=== PATIENT | female | born 1970 | race American Indian/Alaskan Native ===

== ENCOUNTER 2018-09-11 14:18 | Emergency (ER) | payer BC, OTHER ==
[2018-09-11 14:29] VITALS: BP 127/92
--- NOTE | 2018-09-11 14:31 | Emergency Department Report ---
Blank Doc - Documentation Documentation: C/O N/V/D time 1 week. Sharp abd pain. No PMH. This initial assessment diagnostic orders/clinical plan/treatment (s) is/Are subject change based on patient's health status, clinical progression and re- assessment by fellow clinical providers in the ED. Further treatment and work-up at subsequent clinical providers discretion. Patient/guardians urged not to elope from their condition may be serious if not clinically assessed and managed. Initial order include:
[2018-09-11] MEDS ORDERED: BENTYL IM ONE (15:06)
[2018-09-11] MEDS ORDERED: ZOFRAN IM ONE (15:06)
--- NOTE | 2018-09-11 15:11 | Emergency Department Report ---
Vomiting/Diarrhea - HPI Chief Complaint: Abdominal Pain Stated Complaint: STOMACH PAIN/SORE THROAT Time Seen by Provider: 09/11/18 14:24 Duration: 4 Days Severity: moderate Nausea/Vomiting Severity: Moderate Diarrhea Severity: Mild Pain Location: Generalized (crampy) Pain Severity: None Symptoms: Yes Able to Tolerate Fluids (able to keep down tylenol), Yes Family w/ Similar Symptoms (patient recently had a definite family and there were several family members [place] town here. Patient states her brother had to be seen 2 days ago at another emergency department secondary to nausea vomiting diarrhea as well.), No Watery Diarrhea, No Bloody diarrhea, No Fever, No Recent Unusual Foods, No Recent Untreated Water, No Recent use of Antibiotics, No Rash, No Hematuria, No Recent URI Symptoms ED Review of Systems ROS: Stated complaint: STOMACH PAIN/SORE THROAT Other details as noted in HPI Comment: All other systems reviewed and negative ED Past Medical Hx - Past Medical History Additional medical history: scoliosis - Surgical History Additional Surgical History: d&c, thyroid tumor - Social History Smoking Status: Never Smoker Substance Use Type: Alcohol - Medications Home Medications: Home Medications Medication Instructions Recorded Confirmed Last Taken Type Ibuprofen [Motrin] 800 mg PO Q8H PRN #20 tablet 11/08/13 Unknown Rx Dicyclomine [Bentyl] 10 mg PO QID PRN #20 capsule 06/14/16 Unknown Rx Ondansetron [Zofran Odt] 4 mg PO QID PRN #20 tab.rapdis 06/14/16 Unknown Rx Polyethylene Glycol 3350 [Miralax 17 gm PO QDAY #30 packet 06/14/16 Unknown Rx 3350] Dicyclomine [Bentyl] 10 mg PO QID #15 capsule 09/11/18 Unknown Rx Diphenoxylate/Atropine [Lomotil] 1 tab PO Q4H PRN #10 tablet 09/11/18 Unknown Rx Ondansetron [Zofran Odt] 4 mg PO Q8HR PRN #10 tab.rapdis 09/11/18 Unknown Rx traMADol [Ultram] 50 mg PO Q6HR PRN #10 tablet 09/11/18 Unknown Rx Vomiting Diarrhea Exam - Exam General: Vital signs noted. No distress. Alert and acting appropriately. HEENT: Yes Moist Mucous Membranes, No Pharyngeal Erythema, No Pharyngeal Exudates, No Rhinorrhea, No Conjuctival Injection, No Frontal Tenderness, No Maxillary Tenderness Neck: No Adenopathy, No Rigidity Lungs: Yes Clear Lung Sounds, Yes Good Air Exchange, No Wheezes, No Stridor, No Cough, No Nasal Flaring, No Retractions, No Use of Accessory Muscles Heart exam: Regular: Yes, Murmur: No, Tachycardia: No Abdomen: Tenderness: No, Peritoneal Signs: No, Distention: No, Hyperactive Bowel sounds: No Skin exam: Rash: No, Edema: No, Normal turgor: Yes Neurologic: Alert and oriented, no deficits. Musculoskeletal: Unremarkable. ED Course Vital Signs 09/11/18 14:26 Temperature 98.7 F Pulse Rate 81 Respiratory 16 Rate Blood Pressure 127/92 [Left] O2 Sat by Pulse 98 Oximetry ED Medical Decision Making - Medical Decision Making Patient's vital signs are within normal limits her mouth is moist she does not appear to be dehydrated at this time however her symptoms will be treated. Critical care attestation.: If time is entered above; I have spent that time in minutes in the direct care of this critically ill patient, excluding procedure time. ED Disposition Clinical Impression: Viral gastroenteritis Disposition: DC-01 TO HOME OR SELFCARE Is pt being admited?: No Does the pt Need Aspirin: No Condition: Stable Instructions: Gastroenteritis (ED) Time of Disposition: 15:12
== END 2018-09-11 15:39 | disposition home or self-care (01) ==
LOC: ED 14:18
DX: A08.4 Viral intestinal infection, unspecified (principal)
CPT/HCPCS: 96372; 99282; J0500; J2405

== ENCOUNTER 2018-10-22 11:50 | Emergency (ER) | payer BC ==
[2018-10-22 12:21] VITALS: BP 149/99
--- NOTE | 2018-10-22 12:21 | Emergency Department Report ---
Blank Doc - Documentation Documentation: This is a 48-year-old female that presents with dry cough with left eye pain and irritation. This initial assessment/diagnostic orders/clinical plan/treatment(s) is/are subject to change based on patient's health status, clinical progression and re- assessment by fellow clinical providers in the ED. Further treatment and workup at subsequent clinical providers discretion. Patient/guardians urged not to elope from the ED as their condition may be serious if not clinically assessed and managed. Initial orders include: 1- Patient sent to [facility] for further evaluation and treatment 2- moses lamp 3- CXR
[2018-10-22] MEDS ORDERED: DECADRON IM ONE (13:01)
--- NOTE | 2018-10-22 13:01 | Emergency Department Report ---
Minor Respiratory - HPI Chief Complaint: Upper Respiratory Infection Stated Complaint: SAURABH/DIZZY/WEAKNESS/EYES RED Time Seen by Provider: 10/22/18 12:19 Duration: 5 Days Pain Location: Facial, Throat, Nose, Ear, Chest Severity: mild Minor Respiratory: Yes Rhinorrhea, Yes Able to Tolerate Fluids, No Sore Throat, No Ear Pain, No Cough, No Sick Contacts, No Hemoptysis, No Chest Pain, No Shortness of Breath, No Fever Other History: Patient is a pleasant 48-year-old who comes to the ER with allergic type signs and symptoms. She's had a runny nose, runny eyes, postnasal drip. Today she has developed conjunctiva as above her left side. She states that previously she had it in her right. Vital signs are stable she is afebrile. She has no significant past medical history. She is ambulatory, and nontoxic in the ER. ED Review of Systems ROS: Stated complaint: SAURABH/DIZZY/WEAKNESS/EYES RED Other details as noted in HPI Comment: All other systems reviewed and negative ED Past Medical Hx - Past Medical History Previous Medical History?: No Additional medical history: scoliosis - Surgical History Past Surgical History?: No Additional Surgical History: d&c, thyroid tumor - Family History Family history: no significant - Social History Smoking Status: Never Smoker Substance Use Type: None - Medications Home Medications: Home Medications Medication Instructions Recorded Confirmed Last Taken Type Polymyxin B Sulf/Trimethoprim 10 ml OP Q6H #1 each 10/22/18 Unknown Rx [Polytrim Eye Drops] Minor Respiratory Exam - Exam General: Vital signs noted. No distress. Alert and acting appropriately. HEENT: Yes Moist Mucous Membranes, Yes Rhinorrhea, Yes Conjuctival Injection, No Pharyngeal Erythema, No Pharyngeal Exudates, No Frontal Tenderness, No Maxillary Tenderness Ear: Neither TM Bulge, Neither TM Erythema, Neither EAC Pain, Neither EAC Discharge Neck: Yes Supple, No Adenopathy Lungs: Yes Good Air Exchange, No Wheezes, No Ronchi, No Stridor, No Cough, No Labored Respirations, No Retractions, No Use of Accessory Muscles, No Other Abnormal Lung Sounds Heart: Yes Regular, No Murmur Abdomen: Yes Normal Bowel Sounds, No Tenderness, No Peritoneal Signs Skin: No Rash, No Edema Neurologic: Alert and oriented, no deficits. Musculoskeletal: Unremarkable. ED Course Vital Signs 10/22/18 12:19 Temperature 98.9 F Pulse Rate 70 Respiratory 18 Rate Blood Pressure 149/99 O2 Sat by Pulse 99 Oximetry ED Medical Decision Making - Medical Decision Making Vital Signs 10/22/18 12:19 Temperature 98.9 F Pulse Rate 70 Respiratory 18 Rate Blood Pressure 149/99 O2 Sat by Pulse 99 Oximetry SIMPLE URTI NO FEVER NO TRAUMA TO EYE AMBULATORY NON TOXIC LUNGS CLEAR DECADRON IM FOR INFLAMMATION DC HOME WITH DC PLAN OF CARE Critical care attestation.: If time is entered above; I have spent that time in minutes in the direct care of this critically ill patient, excluding procedure time. ED Disposition Clinical Impression: Allergic rhinitis, Conjunctivitis Disposition: DC-01 TO HOME OR SELFCARE Is pt being admited?: No Does the pt Need Aspirin: No Condition: Stable Instructions: Conjunctivitis (ED), Allergic Rhinitis (ED) Additional Instructions: STOP DELSYM USE OTC FLONASE AND ZYRTEC DROPS ORDERED TODAY FOLLOW UP PCP Prescriptions: Polymyxin B Sulf/Trimethoprim [Polytrim Eye Drops] 10 ml OP Q6H #1 each Referrals: [facility] [Outside] - 3-5 Days Forms: Work/School Release Form(ED) Time of Disposition: 13:03
--- NOTE | 2018-10-22 14:06 | XRay Report ---
ROUTINE CHEST, TWO VIEWS: HISTORY: Cough. The trachea, heart, mediastinal contour, lung zhou are unremarkable. Moderate scoliosis is noted. The bony structures are intact. IMPRESSION: Scoliosis, otherwise, unremarkable chest films.
== END 2018-10-22 13:23 | disposition home or self-care (01) ==
LOC: ED 11:50
DX: J30.9 Allergic rhinitis, unspecified (principal); H10.9 Unspecified conjunctivitis; Z85.850 Personal history of malignant neoplasm of thyroid
CPT/HCPCS: 71046; 96372; 99283; J1100